=== PATIENT | male | born 1990 | race Caucasian/White ===

== ENCOUNTER 2018-04-24 19:55 | Emergency (ER) | payer SELFPAY ==
[~2018-04-24] VITALS: Ht 162.6 cm; Wt 94.6 kg
[2018-04-24] MEDS ORDERED: LIDOCAINE HCL/PF 1% 10 MG/ML 5ML VIAL IJ ONE (23:15)
[2018-04-24] MEDS ORDERED: KETOROLAC 60MG/2ML VIAL IM ONE (23:15)
[2018-04-24] MEDS ORDERED: HYDROCODONE/ACETAMINOPHEN 5/325MG TABLET PO ONE (23:15)
[2018-04-24] MEDS ORDERED: TETANUS, DIPHTHERIA, PERTUSSIS VAC/PF 0.5ML (>7YR OLD) IM ONE (23:15)
[2018-04-24] MEDS ORDERED: BACITRACIN ZINC OINT UDPKT TOP ONE (23:15)
[2018-04-25 01:55] VITALS: BP 118/72
== END 2018-04-25 01:55 | disposition home or self-care (01) ==
LOC: ER 19:55
DX: R51 Headache (principal); M54.2 Cervicalgia; S80.211A Abrasion, right knee, initial encounter; S80.251A Superficial foreign body, right knee, initial encounter; S80.212A Abrasion, left knee, initial encounter; W03.XXXA Other fall on same level due to collision with another person, initial encounter; R03.0 Elevated blood-pressure reading, without diagnosis of hypertension; Y04.2XXA Assault by strike against or bumped into by another person, initial encounter; Y93.89 Activity, other specified; Y92.89 Other specified places as the place of occurrence of the external cause; Z23 Encounter for immunization
CPT/HCPCS: 70450; 70486; 72125; 73562; 90471; 90715; 96372; 99284; J1885; J3490